=== PATIENT | male | born 1965 | race Caucasian/White ===

== ENCOUNTER 2017-04-30 18:56 | Emergency (ER) | payer BC ==
[~2017-04-30] VITALS: Ht 182.9 cm; Wt 93.0 kg
[~2017-04-30 18:56] MED LIST: ASPIR-LOW81 MG PO; BUSPIRONE HCL10 MG PO; DULOXETINE HCL60 MG PO; NORCO 5-325 TA1 EACH PO; PRAVACHOL20 MG PO
== END 2017-04-30 19:19 | disposition home or self-care (01) ==
LOC: ED 18:56
DX: M79.89 Other specified soft tissue disorders (principal); R21 Rash and other nonspecific skin eruption

== ENCOUNTER 2018-03-10 08:44 | Emergency (ER) | payer OTHER ==
[~2018-03-10] VITALS: Ht 182.9 cm; Wt 93.0 kg
[2018-03-10] MEDS ORDERED: LEVOTHYROXINE50 MCG PO (09:05)
[2018-03-10] MEDS ORDERED: MELOXICAM15 MG PO (09:06)
== END 2018-03-10 09:25 | disposition home or self-care (01) ==
LOC: ED 08:44
DX: M25.562 Pain in left knee (principal); E78.00 Pure hypercholesterolemia, unspecified; F17.200 Nicotine dependence, unspecified, uncomplicated; Z79.82 Long term (current) use of aspirin; Z79.899 Other long term (current) drug therapy
CPT/HCPCS: 99283